=== PATIENT | male | born 1975 | race Caucasian/White ===

== ENCOUNTER 2025-06-14 11:53 | Emergency (ER) | payer BC ==
[~2025-06-14] VITALS: Ht 175.3 cm; Wt 85.3 kg
[2025-06-14 12:35] LABS: PLATELET COUNT (AUTO) 301 K/uL (150-450); RED BLOOD CELL COUNT(AUTO) 4.75 MIL/uL (4.5-6.0); RED CELL DISTRIBUTION WIDTH 13.0 % (11.5-15.0); WHITE BLOOD COUNT (AUTO) 8.1 K/uL (4.3-11.0)
[2025-06-14] MEDS ORDERED: KETOROLAC TROMETHAMINE 15 MG/ML VIAL ONE (12:35)
[2025-06-14 12:42] LABS: CALCIUM, SERUM 9.1 mg/dL (8.5-10.1); CREATININE 0.9 mg/dL (0.6-1.3); SODIUM SERUM 131.0 mmol/L (136-145); UREA NITROGEN, BLOOD 11.0 mg/dL (7-18)
[2025-06-14 12:48] LABS: ASPARTATE AMINOTRANSFERASE 17.0 U/L (15-37); TOTAL PROTEIN, SERUM 7.7 g/dL (6.4-8.2)
[2025-06-14] MEDS: IV NS 0.9% 1,000 ML BAG IV ONE (12:55)
[2025-06-14] MEDS: KETOROLAC TROMETHAMINE 15 MG/ML VIAL IV ONE (13:10)
[2025-06-14] MEDS ORDERED: TAMS-12 PO (13:17)
[2025-06-14] MEDS ORDERED: CIPR-262 PO (13:17)
[2025-06-14 14:15] VITALS: BP 147/96; TEMP 98.4; O2SAT 99
[2025-06-14 15:04] LABS: APPEARANCE,URINE CLEAR (CLEAR); BLOOD, URINE 3+ Ery/uL (NEGATIVE); LEUKOCYTE ESTERASE ,URINE 1+ (NEGATIVE); NITRITE, URINE NEGATIVE (NEGATIVE); UGLUCOSE NEGATIVE (NEGATIVE)
[2025-06-14 15:28] LABS: ADD URINE CULTURE YES
[2025-06-14 15:29] LABS: SQUAMOUS EPITHELIAL CELL,UR Few /HPF (None Seen)
== END 2025-06-14 14:00 | disposition left against medical advice (07) ==
LOC: ER 12:04
DX: R31.9 Hematuria, unspecified (principal); K59.00 Constipation, unspecified; K57.30 Diverticulosis of large intestine without perforation or abscess without bleeding; E04.1 Nontoxic single thyroid nodule; N41.9 Inflammatory disease of prostate, unspecified
CPT/HCPCS: 99285; 74176; 96374; 96361; 85025; 80048; 83690; 80076; 81001; 36415; J1885; J7030; 87086-TC